=== PATIENT | male | born 2000 | race Two or more races ===

== ENCOUNTER 2024-03-08 16:19 | Emergency (ER) | payer MEDICAID ==
[~2024-03-08] VITALS: Ht 185.4 cm; Wt 100.0 kg
[2024-03-08 16:29] VITALS: BP 136/74; PULSE 82; TEMP 97.6; O2SAT 99
[2024-03-08] MEDS ORDERED: NEOM10DR45 LEFT EAR (17:46)
[2024-03-08 17:52] VITALS: RESP 18
== END 2024-03-08 17:52 | disposition home or self-care (01) ==
LOC: ER 16:20
DX: H60.8X2 Other otitis externa, left ear (principal)
CPT/HCPCS: 99283